=== PATIENT | male | born 1960 | race American Indian/Alaskan Native ===

== ENCOUNTER 2021-03-05 12:50 | Emergency (ER) | payer OTHER, SELFPAY ==
[2021-03-05 14:46] VITALS: BP 137/73
[2021-03-05] MEDS ORDERED: KETOROLAC 30 MG/1 ML INJ IM ONE (20:18)
[2021-03-05] MEDS ORDERED: predniSONE 20 MG TAB PO ONE (20:18)
--- NOTE | 2021-03-05 20:39 | Emergency Department Report ---
ED General Adult HPI - General Chief complaint: Extremity Problem,Nontraumatic Stated complaint: BACK/KNEE/LEG PAIN Time Seen by Provider: 03/05/21 20:01 Source: patient Mode of arrival: Ambulatory Limitations: No Limitations - History of Present Illness Initial comments: Patient is a 60-year-old -[place] male who presents for right lower back pain radiating to right knee and right lower leg acute on chronic for the last 3 months. Patient is followed by PCP and orthopedics for same. [facility] orthopedics started him on diclofenac as needed pain. States pain is intermittent and not improving. Patient denies fall injury or trauma. Denies history of arthralgia. Pain is described as sharp tingling burning radiating from the low back. Pain is exacerbated by bending twisting reaching. Pain is relieved intermittent by p.o. medications. Severity scale (0 -10): 5 - Related Data Previous Rx's Medication Instructions Recorded Last Taken Type HYDROcodone/APAP 7.5-325 [[place] 1 each PO Q6HR PRN #20 tablet 06/26/14 Unknown Rx 7.5/325 mg] Ibuprofen [Motrin] 600 mg PO Q8H PRN #60 tablet 06/26/14 Unknown Rx levoFLOXacin [Levaquin] 750 mg PO QDAY #10 tablet 06/26/14 Unknown Rx Diclofenac Sodium 75 mg PO Q8H PRN #30 tablet. 03/05/21 Unknown Rx Menthol/Camphor [[place] 1 applicatio TP Q6H PRN #1 tube 03/05/21 Unknown Rx Ointment] predniSONE [Deltasone] 40 mg PO QDAY 5 Days #10 tab 03/05/21 Unknown Rx Allergies Allergy/AdvReac Type Severity Reaction Status Date / Time No Known Allergies Allergy Unverified 06/26/14 17:24 ED Review of Systems ROS: Stated complaint: BACK/KNEE/LEG PAIN Other details as noted in HPI Constitutional: denies: chills, fever Eyes: denies: eye pain, eye discharge, vision change ENT: denies: ear pain, throat pain Respiratory: denies: cough, shortness of breath, wheezing Cardiovascular: denies: chest pain, palpitations Endocrine: no symptoms reported Gastrointestinal: denies: abdominal pain, nausea, diarrhea Genitourinary: denies: urgency, dysuria Musculoskeletal: back pain, myalgia Skin: denies: rash, lesions Neurological: denies: headache, weakness, paresthesias Psychiatric: denies: anxiety, depression Hematological/Lymphatic: denies: easy bleeding, easy bruising ED Past Medical Hx - Past Medical History Previous Medical History?: Yes Hx Asthma: Yes - Surgical History Past Surgical History?: No - Social History Smoking Status: Never Smoker Substance Use Type: None - Medications Home Medications: Home Medications Medication Instructions Recorded Confirmed Last Taken Type HYDROcodone/APAP 7.5-325 [[place] 1 each PO Q6HR PRN #20 tablet 06/26/14 Unknown Rx 7.5/325 mg] Ibuprofen [Motrin] 600 mg PO Q8H PRN #60 tablet 06/26/14 Unknown Rx levoFLOXacin [Levaquin] 750 mg PO QDAY #10 tablet 06/26/14 Unknown Rx Diclofenac Sodium 75 mg PO Q8H PRN #30 tablet. 03/05/21 Unknown Rx Menthol/Camphor [[place] 1 applicatio TP Q6H PRN #1 tube 03/05/21 Unknown Rx Ointment] predniSONE [Deltasone] 40 mg PO QDAY 5 Days #10 tab 03/05/21 Unknown Rx ED Physical Exam - General Limitations: No Limitations General appearance: alert, in no apparent distress - Head Head exam: Present: atraumatic, normocephalic - Eye Eye exam: Present: normal appearance, EOMI Pupils: Present: normal accommodation - ENT ENT exam: Present: mucous membranes moist - Neck Neck exam: Present: normal inspection, full ROM. Absent: tenderness - Respiratory Respiratory exam: Present: normal lung sounds bilaterally. Absent: respiratory distress, wheezes - Cardiovascular Cardiovascular Exam: Present: regular rate, normal rhythm, normal heart sounds. Absent: systolic murmur, diastolic murmur, rubs, gallop - GI/Abdominal GI/Abdominal exam: Present: soft, normal bowel sounds. Absent: distended, tenderness - Rectal Rectal exam: Present: deferred - exam: Present: normal inspection - Extremities Exam Extremities exam: Present: normal inspection, full ROM, joint swelling. Absent: tenderness - Back Exam Back exam: Present: normal inspection, full ROM, muscle spasm. Absent: CVA tenderness (R), CVA tenderness (L), paraspinal tenderness, vertebral tenderness - Expanded Back Exam Expanded Back exam: Absent: saddle anesthesia Back exam: Positive Straight Leg Raise: Right, Negative Straight Leg Raising: Left - Neurological Exam Neurological exam: Present: alert, oriented X3, CN II-XII intact, normal gait, reflexes normal. Absent: motor sensory deficit - Expanded Neurological Exam Expanded Patient oriented to: Present: person, place, time Speech: Present: fluid speech Motor strength exam: RUE: 5, LUE: 5, RLE: 5, LLE: 5 DTR: knee (R): 2+, knee (L): 2+ Best Eye Response (Gravel Switch): (4) open spontaneously Best Motor Response (Gravel Switch): (6) obeys commands Best Verbal Response (Gravel Switch): (5) oriented Gravel Switch Total: 15 - Psychiatric Psychiatric exam: Present: normal affect, normal mood - Skin Skin exam: Present: warm, dry, intact, normal color. Absent: rash ED Course Vital Signs 03/05/21 14:45 Temperature 98.3 F Pulse Rate 58 L Respiratory 17 Rate Blood Pressure 137/73 [Right] O2 Sat by Pulse 97 Oximetry ED Medical Decision Making - Medical Decision Making Pain is improved with medications given in ED. Distal pulses intact, there is been no loss or decrease in bowel or bladder function. Patient is amatory with steady gait. Patient with no acute distress. Plan DC to home, follow-up with orthopedics as scheduled. Return to emergency department should symptoms worsen. Critical care attestation.: If time is entered above; I have spent that time in minutes in the direct care of this critically ill patient, excluding procedure time. ED Disposition Clinical Impression: Musculoskeletal pain of right lower extremity Disposition: DC-01 TO HOME OR SELFCARE Is pt being admited?: No Does the pt Need Aspirin: No Condition: Stable Instructions: Musculoskeletal Pain Additional Instructions: take medications as prescibed, follow up with orthopedics in 2-3 days, return to emergency if symptoms worsen , follow Prescriptions: predniSONE [Deltasone] 40 mg PO QDAY 5 Days #10 tab Diclofenac Sodium 75 mg PO Q8H PRN #30 tablet.dr [place] Reason: pain Menthol/Camphor [[place] Ointment] 1 applicatio TP Q6H PRN #1 tube PRN Reason: pain Referrals: VANGIE ROSENBAUM MD [Primary Care Provider] - 3-5 Days Forms: Work/School Release Form(ED) Time of Disposition: 20:49
== END 2021-03-05 21:03 | disposition home or self-care (01) ==
LOC: ED 12:50
DX: M79.661 Pain in right lower leg (principal); J45.909 Unspecified asthma, uncomplicated; Z79.1 Long term (current) use of non-steroidal anti-inflammatories (NSAID); Z79.899 Other long term (current) drug therapy
CPT/HCPCS: 96372; 99282; J1885; J7512